=== PATIENT | male | born 1945 | race Caucasian/White ===

== ENCOUNTER → 2017-01-29 | Outpatient (CLI) | payer OTHER ==
[~2017-01-29] MED LIST: /LABE20TA OR; AMLO10TA PO; CALCIUM GLUCONATE; NIAC500T PO; [UNRECOGNIZED DRUG - OTHER] PO
== END ==
LOC: M SLEEP 19:22
PROVIDERS: ATTEND Nurse Practitioner Adult Health
DX: G47.33 Obstructive sleep apnea (adult) (pediatric) (principal)

== ENCOUNTER → 2017-04-22 | Outpatient (REF) | payer OTHER ==
[2017-04-22 15:16] LABS: MEAN CORPUSCULAR VOLUME 91.1 fl (80.0-96.0); RED CELL DISTRIBUTION WIDTH 13.1 % (11.5-14.5); WHITE BLOOD COUNT 5.3 K/mm3 (4.0-10.0)
[2017-04-22 15:17] LABS: ALBUMIN 3.7 GM/DL (3.2-5.2); ALBUMIN/GLOBULIN RATIO 1.28 (1.00-1.93); BILIRUBIN,TOTAL 1.7 MG/DL (0.2-1.0); CALCIUM LEVEL 8.8 MG/DL (8.8-10.2); CREATININE FOR GFR 1.32 MG/DL (0.70-1.30); GLOMERULAR FILTRATION RATE 57.1 (>42); POTASSIUM SERUM 4.3 MEQ/L (3.5-5.1); TOTAL PROTEIN 6.6 GM/DL (6.4-8.2)
[2017-04-25 00:06] LABS: Lyme Disease IgG/IgM Antibodie <0.91 ISR (0.00-0.90); Lyme Disease IgM Ab Quantitati <0.80 index (0.00-0.79)
== END ==
LOC: M SFHCLACO 09:12
PROVIDERS: ATTEND Physician Assistant
DX: J44.9 Chronic obstructive pulmonary disease, unspecified (principal); E78.2 Mixed hyperlipidemia; I12.9 Hypertensive chronic kidney disease with stage 1 through stage 4 chronic kidney disease, or unspecified chronic kidney disease; N18.3 Chronic kidney disease, stage 3 (moderate); W57.XXXS Bitten or stung by nonvenomous insect and other nonvenomous arthropods, sequela; Y92.9 Unspecified place or not applicable; Y93.9 Activity, unspecified; Y99.8 Other external cause status

== ENCOUNTER → 2017-04-27 | Outpatient (REF) | payer OTHER | LOC: M SFHCLACO 08:29 | PROVIDERS: ATTEND Physician Assistant | DX: Z12.5 Encounter for screening for malignant neoplasm of prostate (principal) | CPT/HCPCS: 36415; G0103; G0463 ==

== ENCOUNTER → 2017-10-12 | Outpatient (REF) | payer OTHER ==
[2017-10-12 15:03] LABS: MEAN CORPUSCULAR HEMOGLOBIN 30.6 pg (27.0-33.0); MEAN CORPUSCULAR HGB CONC 34.6 g/dl (32.0-36.5); MEAN CORPUSCULAR VOLUME 88.5 fl (80.0-96.0); PLATELET COUNT, AUTOMATED 198 10^3/uL (150-450); RED CELL DISTRIBUTION WIDTH 13.7 % (11.5-14.5); WHITE BLOOD COUNT 6.2 10^3/uL (4.0-10.0)
[2017-10-12 15:19] LABS: ALBUMIN 3.9 GM/DL (3.2-5.2); ALBUMIN/GLOBULIN RATIO 1.44 (1.00-1.93); BILIRUBIN,TOTAL 1.7 MG/DL (0.2-1.0); CALCIUM LEVEL 8.2 MG/DL (8.8-10.2); CREATININE FOR GFR 1.42 MG/DL (0.70-1.30); GLOMERULAR FILTRATION RATE 52.5 (>42); PERCENT SATURATION 24.9 % (19.7-50.0); POTASSIUM SERUM 4.4 MEQ/L (3.5-5.1); TOTAL PROTEIN 6.6 GM/DL (6.4-8.2)
== END ==
LOC: M SFHCLACO 09:23
PROVIDERS: ATTEND Physician Assistant
DX: E78.2 Mixed hyperlipidemia (principal); I12.9 Hypertensive chronic kidney disease with stage 1 through stage 4 chronic kidney disease, or unspecified chronic kidney disease; N18.3 Chronic kidney disease, stage 3 (moderate); J44.9 Chronic obstructive pulmonary disease, unspecified; R55 Syncope and collapse; R79.89 Other specified abnormal findings of blood chemistry

== ENCOUNTER → 2018-03-29 | Outpatient (REF) | payer OTHER ==
[2018-03-29 15:21] LABS: HEMATOCRIT 46.5 % (42.0-52.0); HEMOGLOBIN 15.7 g/dl (13.5-17.5); MEAN CORPUSCULAR HEMOGLOBIN 29.7 pg (27.0-33.0); MEAN CORPUSCULAR HGB CONC 33.8 g/dl (32.0-36.5); MEAN CORPUSCULAR VOLUME 87.9 fl (80.0-96.0); PLATELET COUNT, AUTOMATED 208 10^3/uL (150-450); RED BLOOD COUNT 5.29 10^6/uL (4.30-6.10); WHITE BLOOD COUNT 5.4 10^3/uL (4.0-10.0)
[2018-03-29 15:51] LABS: ALBUMIN/GLOBULIN RATIO 1.33 (1.00-1.93); ALKALINE PHOSPHATASE 88 U/L (45-117); ALT/SGPT 42 U/L (12-78); ANION GAP 5 MEQ/L (8-16); AST/SGOT 25 U/L (7-37); BILIRUBIN,TOTAL 1.4 MG/DL (0.2-1.0); BLOOD UREA NITROGEN 20 MG/DL (7-18); CALCIUM LEVEL 8.8 MG/DL (8.8-10.2); CARBON DIOXIDE LEVEL 29 MEQ/L (21-32); CHLORIDE LEVEL 106 MEQ/L (98-107); CHOLESTEROL LEVEL 172 MG/DL (<200); CHOLESTEROL RISK RATIO 3.822 (<5); CREATININE FOR GFR 1.26 MG/DL (0.70-1.30); FERRITIN 110 NG/ML (26-388); GLOMERULAR FILTRATION RATE > 60.0 (>42); GLUCOSE, FASTING 93 MG/DL (70-100); HDL CHOLESTEROL 45 MG/DL (>40); IRON (FE) 130 UG/DL (65-175); LDL CHOLESTEROL 81.8 MG/DL (<100); NON-HDL-C 127 MG/DL; PERCENT SATURATION 36.3 % (19.7-50.0); POTASSIUM SERUM 4.2 MEQ/L (3.5-5.1); SODIUM LEVEL 140 MEQ/L (136-145); TOTAL IRON BINDING CAPACITY 358 UG/DL (250-450); TRIGLYCERIDES LEVEL 226 MG/DL (<150)
== END ==
LOC: M SFHCLACO 15:09
DX: J44.9 Chronic obstructive pulmonary disease, unspecified (principal); E78.2 Mixed hyperlipidemia; I10 Essential (primary) hypertension; R55 Syncope and collapse; R79.89 Other specified abnormal findings of blood chemistry
CPT/HCPCS: 83550

== ENCOUNTER 2018-06-07 23:22 | Inpatient (IN) | payer OTHER ==
[2018-06-08] MEDS: KETOROLAC 60 MG/2 ML VIAL (J1885) IM (04:55)
[2018-06-08] MEDS: MORPHINE 4 MG/ML 1ML VIAL/SYRINGE (J2270) IV (07:45)
[2018-06-08 07:55] LABS: BASO # 0.1 10^3/uL (0.0-0.2); BASO % 0.3 % (0.0-1.0); EOS % 0.2 % (0.0-3.0); HEMOGLOBIN 11.5 g/dl (13.5-17.5); IMMATURE GRANULOCYTE % 1.2 % (0-3.0); LYMPH # 2.5 10^3/uL (1.5-4.5); LYMPH % 13.7 % (24.0-44.0); MEAN CORPUSCULAR HEMOGLOBIN 30.1 pg (27.0-33.0); MEAN CORPUSCULAR HGB CONC 34.8 g/dl (32.0-36.5); MEAN CORPUSCULAR VOLUME 86.4 fl (80.0-96.0); MONO # 1.6 10^3/uL (0.0-0.8); MONO % 8.6 % (0.0-5.0); NEUTROPHILS # 14.1 10^3/uL (1.8-7.7); PLATELET COUNT, AUTOMATED 235 10^3/uL (150-450); RED BLOOD COUNT 3.82 10^6/uL (4.30-6.10); RED CELL DISTRIBUTION WIDTH 13.4 % (11.5-14.5); WHITE BLOOD COUNT 18.6 10^3/uL (4.0-10.0)
[2018-06-08 08:19] LABS: ANION GAP 12 MEQ/L (8-16); BLOOD UREA NITROGEN 35 MG/DL (7-18); CALCIUM LEVEL 7.8 MG/DL (8.8-10.2); CARBON DIOXIDE LEVEL 20 MEQ/L (21-32); CHLORIDE LEVEL 111 MEQ/L (98-107); CREATININE FOR GFR 2.16 MG/DL (0.70-1.30); GLOMERULAR FILTRATION RATE 32.2 (>42); GLUCOSE, FASTING 121 MG/DL (70-100); POTASSIUM SERUM 4.8 MEQ/L (3.5-5.1); SODIUM LEVEL 143 MEQ/L (136-145)
[2018-06-08] MEDS: NS 1,000 ML IV ×3 (08:45→21:11)
[2018-06-08 08:49] LABS: CPK CREATINE PHOSPHOKINASE 225 U/L (39-308)
[2018-06-08] MEDS ORDERED: ACETAMINOPHEN TAB 650MG DOSE (2X325MG) PO (12:00)
[2018-06-08] MEDS ORDERED: ALBUTEROL 90 MCG/ACT 8GM HFA INHALER INH (12:00)
[2018-06-08] MEDS ORDERED: ONDANSETRON 4 MG TAB (S0181) PO (12:00)
[2018-06-08] MEDS: CEFDINIR 300 MG CAP (OMNICEF) PO ×2 (17:43→21:11)
[2018-06-08] MEDS: amLODIPine 10 MG TAB PO (17:44)
[2018-06-08] MEDS: PERCOCET 5MG/325MG TAB PO ×2 (17:46→21:53)
[2018-06-08] MEDS: SENOKOT S TAB PO (21:11)
[2018-06-08] MEDS: DOCUSATE SODIUM 100 MG CAP PO (21:11)
[2018-06-09] MEDS: PERCOCET 5MG/325MG TAB PO ×5 (01:52→23:45)
[2018-06-09] MEDS: NS 1,000 ML IV ×4 (04:24→23:45)
[2018-06-09 06:49] LABS: HEMATOCRIT 28.3 % (42.0-52.0); MEAN CORPUSCULAR HEMOGLOBIN 29.9 pg (27.0-33.0); MEAN CORPUSCULAR HGB CONC 33.2 g/dl (32.0-36.5); MEAN CORPUSCULAR VOLUME 90.1 fl (80.0-96.0); PLATELET COUNT, AUTOMATED 186 10^3/uL (150-450); RED BLOOD COUNT 3.14 10^6/uL (4.30-6.10); RED CELL DISTRIBUTION WIDTH 13.6 % (11.5-14.5); WHITE BLOOD COUNT 11.8 10^3/uL (4.0-10.0)
[2018-06-09 06:55] LABS: HEMOGLOBIN 9.4 g/dl (13.5-17.5)
[2018-06-09 07:13] LABS: ALBUMIN 2.5 GM/DL (3.2-5.2); ALBUMIN/GLOBULIN RATIO 0.89 (1.00-1.93); ALKALINE PHOSPHATASE 76 U/L (45-117); ALT/SGPT 35 U/L (12-78); ANION GAP 7 MEQ/L (8-16); AST/SGOT 21 U/L (7-37); BLOOD UREA NITROGEN 45 MG/DL (7-18); CARBON DIOXIDE LEVEL 25 MEQ/L (21-32); CHLORIDE LEVEL 110 MEQ/L (98-107); CREATININE FOR GFR 2.37 MG/DL (0.70-1.30); GLUCOSE, FASTING 106 MG/DL (70-100); MAGNESIUM LEVEL 1.9 MG/DL (1.8-2.4); PHOSPHORUS LEVEL 4.2 MG/DL (2.5-4.9); SODIUM LEVEL 142 MEQ/L (136-145); TOTAL PROTEIN 5.3 GM/DL (6.4-8.2)
[2018-06-09] MEDS: TOLTERODINE TARTRATE 2 MG LA CAP (DETROL LA) PO (08:39)
[2018-06-09] MEDS: amLODIPine 10 MG TAB PO (08:39)
[2018-06-09] MEDS: SENOKOT S TAB PO ×2 (08:39→19:26)
[2018-06-09] MEDS: CEFDINIR 300 MG CAP (OMNICEF) PO ×2 (08:39→19:25)
[2018-06-09] MEDS: DOCUSATE SODIUM 100 MG CAP PO ×2 (08:39→19:25)
[2018-06-09] MEDS: TIOTROPIUM INHALER/CAPSULE (SPIRIVA) INH ×2 (11:00→11:21)
[2018-06-09 15:50] LABS: CREATININE,RANDOM URINE 47.9 MG/DL
[2018-06-09 15:50] LABS: SODIUM,RANDOM URINE 37 MEQ/L
[2018-06-10] MEDS: PERCOCET 5MG/325MG TAB PO ×4 (04:19→22:31)
[2018-06-10] MEDS: NS 1,000 ML IV (06:27)
[2018-06-10 06:46] LABS: HEMATOCRIT 25.2 % (42.0-52.0); HEMOGLOBIN 8.5 g/dl (13.5-17.5); MEAN CORPUSCULAR HGB CONC 33.7 g/dl (32.0-36.5); PLATELET COUNT, AUTOMATED 152 10^3/uL (150-450); RED BLOOD COUNT 2.83 10^6/uL (4.30-6.10); RED CELL DISTRIBUTION WIDTH 13.6 % (11.5-14.5); WHITE BLOOD COUNT 8.7 10^3/uL (4.0-10.0)
[2018-06-10] MEDS: TIOTROPIUM INHALER/CAPSULE (SPIRIVA) INH (07:40)
[2018-06-10 07:52] LABS: ANION GAP 6 MEQ/L (8-16); BLOOD UREA NITROGEN 29 MG/DL (7-18); CALCIUM LEVEL 7.2 MG/DL (8.8-10.2); CARBON DIOXIDE LEVEL 25 MEQ/L (21-32); CHLORIDE LEVEL 116 MEQ/L (98-107); CREATININE FOR GFR 1.62 MG/DL (0.70-1.30); GLOMERULAR FILTRATION RATE 44.9 (>42); GLUCOSE, FASTING 99 MG/DL (70-100); SODIUM LEVEL 147 MEQ/L (136-145)
[2018-06-10 08:06] LABS: POTASSIUM SERUM 4.9 MEQ/L (3.5-5.1)
[2018-06-10] MEDS: amLODIPine 10 MG TAB PO (08:44)
[2018-06-10] MEDS: CEFDINIR 300 MG CAP (OMNICEF) PO ×2 (08:44→20:12)
[2018-06-10] MEDS: DOCUSATE SODIUM 100 MG CAP PO ×2 (08:44→20:12)
[2018-06-10] MEDS: SENOKOT S TAB PO ×2 (08:44→20:12)
[2018-06-10] MEDS: TOLTERODINE TARTRATE 2 MG LA CAP (DETROL LA) PO (08:44)
[2018-06-10 10:43] LABS: HEMATOCRIT 27.7 % (42.0-52.0); HEMOGLOBIN 9.4 g/dl (13.5-17.5)
[2018-06-11] MEDS: PERCOCET 5MG/325MG TAB PO ×2 (02:48→10:50)
[2018-06-11 06:37] LABS: HEMATOCRIT 26.4 % (42.0-52.0); MEAN CORPUSCULAR HEMOGLOBIN 30.1 pg (27.0-33.0); MEAN CORPUSCULAR HGB CONC 34.1 g/dl (32.0-36.5); MEAN CORPUSCULAR VOLUME 88.3 fl (80.0-96.0); PLATELET COUNT, AUTOMATED 173 10^3/uL (150-450); RED BLOOD COUNT 2.99 10^6/uL (4.30-6.10); RED CELL DISTRIBUTION WIDTH 13.9 % (11.5-14.5)
[2018-06-11 06:55] LABS: ANION GAP 7 MEQ/L (8-16); BLOOD UREA NITROGEN 18 MG/DL (7-18); CALCIUM LEVEL 7.8 MG/DL (8.8-10.2); CARBON DIOXIDE LEVEL 26 MEQ/L (21-32); CHLORIDE LEVEL 111 MEQ/L (98-107); CREATININE FOR GFR 1.32 MG/DL (0.70-1.30); GLOMERULAR FILTRATION RATE 56.9 (>42); GLUCOSE, FASTING 103 MG/DL (70-100); POTASSIUM SERUM 4.1 MEQ/L (3.5-5.1); SODIUM LEVEL 144 MEQ/L (136-145)
[2018-06-11] MEDS: TIOTROPIUM INHALER/CAPSULE (SPIRIVA) INH (08:55)
[2018-06-11] MEDS: TOLTERODINE TARTRATE 2 MG LA CAP (DETROL LA) PO (09:18)
[2018-06-11] MEDS: amLODIPine 10 MG TAB PO (09:19)
[2018-06-11] MEDS: SENOKOT S TAB PO (09:20)
[2018-06-11] MEDS: CEFDINIR 300 MG CAP (OMNICEF) PO (09:20)
[2018-06-11] MEDS: DOCUSATE SODIUM 100 MG CAP PO (09:20)
== END 2018-06-11 16:35 | disposition home or self-care (01) | DRG 537 ==
LOC: M ED 23:22 → M ED INP 06-08 09:31 → M MS5PR 06-08 16:55
DX: S76.312A Strain of muscle, fascia and tendon of the posterior muscle group at thigh level, left thigh, initial encounter (principal); N17.9 Acute kidney failure, unspecified; I12.9 Hypertensive chronic kidney disease with stage 1 through stage 4 chronic kidney disease, or unspecified chronic kidney disease; N18.9 Chronic kidney disease, unspecified; E86.0 Dehydration; D64.9 Anemia, unspecified; J44.9 Chronic obstructive pulmonary disease, unspecified; W18.09XA Striking against other object with subsequent fall, initial encounter; Y93.01 Activity, walking, marching and hiking; Y92.828 Other wilderness area as the place of occurrence of the external cause

== ENCOUNTER → 2018-07-21 | Outpatient (REF) | payer OTHER ==
[2018-07-21 14:41] LABS: HEMATOCRIT 48.4 % (42.0-52.0); HEMOGLOBIN 16.4 g/dl (13.5-17.5); MEAN CORPUSCULAR HEMOGLOBIN 30.2 pg (27.0-33.0); MEAN CORPUSCULAR HGB CONC 33.9 g/dl (32.0-36.5); MEAN CORPUSCULAR VOLUME 89.1 fl (80.0-96.0); PLATELET COUNT, AUTOMATED 253 10^3/uL (150-450); RED BLOOD COUNT 5.43 10^6/uL (4.30-6.10); RED CELL DISTRIBUTION WIDTH 13.2 % (11.5-14.5); WHITE BLOOD COUNT 8.3 10^3/uL (4.0-10.0)
[2018-07-21 14:57] LABS: ALBUMIN 4.1 GM/DL (3.2-5.2); ALBUMIN/GLOBULIN RATIO 1.21 (1.00-1.93); ALKALINE PHOSPHATASE 100 U/L (45-117); ALT/SGPT 38 U/L (12-78); ANION GAP 10 MEQ/L (8-16); AST/SGOT 21 U/L (7-37); BILIRUBIN,TOTAL 1.1 MG/DL (0.2-1.0); BLOOD UREA NITROGEN 15 MG/DL (7-18); CARBON DIOXIDE LEVEL 24 MEQ/L (21-32); CHLORIDE LEVEL 107 MEQ/L (98-107); CHOLESTEROL LEVEL 171 MG/DL (<200); CHOLESTEROL RISK RATIO 3.638 (<5); FERRITIN 169 NG/ML (26-388); GLOMERULAR FILTRATION RATE 53.2 (>42); GLUCOSE, FASTING 88 MG/DL (70-100); HDL CHOLESTEROL 47 MG/DL (>40); IRON (FE) 86 UG/DL (65-175); LDL CHOLESTEROL 85.2 MG/DL (<100); NON-HDL-C 124 MG/DL; PERCENT SATURATION 24.2 % (19.7-50.0); POTASSIUM SERUM 4.2 MEQ/L (3.5-5.1); PSA SCREENING 1.36 NG/ML (< 4.0); SODIUM LEVEL 141 MEQ/L (136-145); TOTAL IRON BINDING CAPACITY 356 UG/DL (250-450); TOTAL PROTEIN 7.5 GM/DL (6.4-8.2); TRIGLYCERIDES LEVEL 194 MG/DL (<150)
== END ==
LOC: M SFHCLACO 11:23
DX: D50.0 Iron deficiency anemia secondary to blood loss (chronic) (principal); E78.2 Mixed hyperlipidemia; I10 Essential (primary) hypertension; Z12.5 Encounter for screening for malignant neoplasm of prostate
CPT/HCPCS: 83550

== ENCOUNTER → 2019-10-24 | Outpatient (CLI) | payer MEDICARE ==
[~2019-10-24] MED LIST changes: -/LABE20TA OR; +CEFD300CAP PO; +INCR1INH INH; +LABE1TAB11 OR; +LOSA100T50 PO; +TOLT4CAP3 PO; +TRAM50TA2 PO; +VENTAER INH
--- NOTE | 2019-10-25 10:49 | REP ---
MRI RIGHT SHOULDER: TECHNIQUE: Axial T2 fat sat, gradient echo, sagittal oblique T2 fat sat, coronal oblique T1, T2 fat sat. Ill-defined increased signal is seen in the subscapularis, supraspinatus and infraspinatus tendons on T2-weighted images compatible with moderate tendinopathy/tendinitis. I cannot exclude mild partial thickness tears. There are moderate hypertrophic degenerative changes of the acromioclavicular joint with a type 1 acromion. Biceps tendon is within the bicipital groove. It demonstrates mild surrounding fluid and the proximal aspect is thickened with mild increased signal. Findings are compatible with mild to moderate tenosynovitis. There is no abnormal signal in the deltoid muscle. There is fraying of the biceps labral complex and also diffusely of the superior and inferior labrum. There is a focal tear of the posterior labrum. Huge spur is seen of the medial inferior humeral head and neck. There is flattening of the humeral head at the glenohumeral joint. There is severe chondromalacia at the glenohumeral joint with mild subchondral marrow edema and there is mild scattered subchondral cystic change in the humeral head. There is a moderate joint effusion. Multiple, innumerable joint bodies are present diffusely. Most are subcentimeter in size but a few large joint bodies more superiorly reach approximately 2 cm in diameter. A few large joint bodies in the subcoracoid region have a maximum diameter about 2.7 cm. IMPRESSION: Moderate tendinopathy/tendinitis of the subscapularis, supraspinatus and infraspinatus tendons. Partial thickness tears of these tendons could not be excluded. 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 Moderate biceps tenosynovitis. There is fraying of the biceps labral complex and also diffuse fraying of the superior and inferior labrum. There is a discrete tear seen of the posterior labrum. Severe chondromalacia of the glenohumeral joint with mild subchondral marrow edema. Mild subchondral cystic change humeral head with flattening at the glenohumeral joint. Huge spur of the medial inferior humeral head and neck. Multiple joint bodies as discussed in detail above with moderate joint effusion. Electronically Signed by Marc Landeros MD 10/25/2019 11:36 A
== END ==
LOC: M RAD 17:30
PROVIDERS: ATTEND Orthopaedic Surgery
DX: M19.011 Primary osteoarthritis, right shoulder (principal); M25.711 Osteophyte, right shoulder; M25.411 Effusion, right shoulder; M75.30 Calcific tendinitis of unspecified shoulder; M94.211 Chondromalacia, right shoulder; M25.511 Pain in right shoulder

== ENCOUNTER → 2019-12-08 | Outpatient (REF) | payer MEDICARE ==
[2019-12-08 13:46] LABS: BASO # 0.1 10^3/uL (0.0-0.2); BASO % 0.6 % (0.0-1.0); EOS # 0.1 10^3/uL (0.0-0.5); EOS % 1.1 % (0.0-3.0); HEMATOCRIT 47.7 % (42.0-52.0); HEMOGLOBIN 16.1 g/dl (13.5-17.5); MEAN CORPUSCULAR HEMOGLOBIN 30.1 pg (27.0-33.0); MEAN CORPUSCULAR HGB CONC 33.8 g/dl (32.0-36.5); MEAN CORPUSCULAR VOLUME 89.3 fl (80.0-96.0); MONO # 0.9 10^3/uL (0.0-0.8); MONO % 10.1 % (0.0-5.0); NEUTROPHILS # 5.9 10^3/uL (1.5-8.5); NEUTROPHILS % 65.9 % (36.0-66.0); PLATELET COUNT, AUTOMATED 262 10^3/uL (150-450); RED BLOOD COUNT 5.34 10^6/uL (4.30-6.10); WHITE BLOOD COUNT 8.9 10^3/uL (4.0-10.0)
[2019-12-08 14:33] LABS: INR 1.06; PROTHROMBIN TIME 13.5 SECONDS (11.8-14.0)
[2019-12-08 14:55] LABS: ALBUMIN 4.2 GM/DL (3.2-5.2); BILIRUBIN,TOTAL 1.4 MG/DL (0.2-1.0); CALCIUM LEVEL 8.6 MG/DL (8.8-10.2); CHOLESTEROL RISK RATIO 4.302 (<5); CREATININE FOR GFR 1.7 MG/DL (0.70-1.30); FREE T4 0.8 NG/DL (0.76-1.46); GLOMERULAR FILTRATION RATE 42.3 (>42); MAGNESIUM LEVEL 2.2 MG/DL (1.8-2.4); POTASSIUM SERUM 4.3 MEQ/L (3.5-5.1); THYROID STIMULATING HORMONE 5.13 uIU/ML (0.358-3.740); TOTAL PROTEIN 7.1 GM/DL (6.4-8.2)
== END ==
LOC: M SFHCPLAZ 11:32
PROVIDERS: ATTEND Family Medicine
DX: Z01.818 Encounter for other preprocedural examination (principal); I10 Essential (primary) hypertension; Z79.899 Other long term (current) drug therapy

== ENCOUNTER → 2020-02-06 | Outpatient (REF) | payer MEDICARE ==
[2020-02-06 13:24] LABS: HEMOGLOBIN A1c 5.5 %
[2020-02-06 13:26] LABS: ALBUMIN 3.9 GM/DL (3.2-5.2); BILIRUBIN,TOTAL 1.1 MG/DL (0.2-1.0); CALCIUM LEVEL 8.8 MG/DL (8.8-10.2); CHOLESTEROL RISK RATIO 4.34 (<5); CREATININE FOR GFR 1.37 MG/DL (0.70-1.30); GLOMERULAR FILTRATION RATE 54.2 (>42); POTASSIUM SERUM 4.1 MEQ/L (3.5-5.1); THYROID STIMULATING HORMONE 2.28 uIU/ML (0.358-3.740); TOTAL PROTEIN 7.4 GM/DL (6.4-8.2)
== END ==
LOC: M SFHCADAM 09:41
PROVIDERS: ATTEND Physician Assistant
DX: Z12.5 Encounter for screening for malignant neoplasm of prostate (principal); I10 Essential (primary) hypertension; R73.01 Impaired fasting glucose; E03.9 Hypothyroidism, unspecified
CPT/HCPCS: 80053; 80061; 83036; 84443; G0103

== ENCOUNTER → 2020-07-17 | Outpatient (CLI) | payer MEDICARE ==
--- NOTE | 2020-07-25 15:02 | REP ---
CHEST X-RAY CLINICAL: Shortness of breath. TECHNIQUE: PA and lateral. COMPARISON: None. FINDINGS: Mediastinum and cardiac silhouette are within normal limits. Lung marie are clear. No consolidation, effusion, or pneumothorax. Skeletal structures demonstrate age-related degenerative changes and evidence for prior right shoulder repair. IMPRESSION: Chronic appearing changes. No acute cardiopulmonary process appreciated. MTDD
== END ==
LOC: M ADAMS 14:26
PROVIDERS: ATTEND Nurse Practitioner Adult Health
DX: R06.02 Shortness of breath (principal); M15.9 Polyosteoarthritis, unspecified

== ENCOUNTER → 2020-08-05 | Outpatient (REF) | payer MEDICARE ==
[2020-08-05 12:46] LABS: BASO % 0.6 % (0.0-1.0); EOS # 0.1 10^3/uL (0.0-0.5); EOS % 1.4 % (0.0-3.0); HEMOGLOBIN 17.2 g/dl (13.5-17.5); LYMPH # 2.1 10^3/uL (1.5-5.0); LYMPH % 32.6 % (24.0-44.0); MEAN CORPUSCULAR HEMOGLOBIN 29.6 pg (27.0-33.0); MEAN CORPUSCULAR HGB CONC 33.1 g/dl (32.0-36.5); MEAN CORPUSCULAR VOLUME 89.5 fl (80.0-96.0); MONO # 0.5 10^3/uL (0.0-0.8); MONO % 8.1 % (0.0-5.0); NEUTROPHILS # 3.6 10^3/uL (1.5-8.5); NEUTROPHILS % 57.1 % (36.0-66.0); PLATELET COUNT, AUTOMATED 267 10^3/uL (150-450); RED BLOOD COUNT 5.81 10^6/uL (4.30-6.10); WHITE BLOOD COUNT 6.3 10^3/uL (4.0-10.0)
[2020-08-05 12:52] LABS: ALBUMIN 3.6 GM/DL (3.2-5.2); BILIRUBIN,TOTAL 1.2 MG/DL (0.2-1.0); CALCIUM LEVEL 8.9 MG/DL (8.8-10.2); CREATININE FOR GFR 1.6 MG/DL (0.70-1.30); GLOMERULAR FILTRATION RATE 45.3 (>42); POTASSIUM SERUM 4.3 MEQ/L (3.5-5.1); TOTAL PROTEIN 6.5 GM/DL (6.4-8.2)
== END ==
LOC: M SFHCPLAZ 12:16 → M SFHCADAM 12:16
PROVIDERS: ATTEND Family Medicine
DX: R06.02 Shortness of breath (principal)

== ENCOUNTER → 2020-09-30 | Outpatient (REF) | payer MEDICARE ==
[2020-09-30 15:01] LABS: ALBUMIN 3.8 GM/DL (3.2-5.2); BILIRUBIN,TOTAL 1.5 MG/DL (0.2-1.0); CALCIUM LEVEL 9.2 MG/DL (8.8-10.2); CHOLESTEROL RISK RATIO 3.613 (<5); CREATININE FOR GFR 1.5 MG/DL (0.70-1.30); GLOMERULAR FILTRATION RATE 48.8 (>42); POTASSIUM SERUM 4.1 MEQ/L (3.5-5.1); TOTAL PROTEIN 6.8 GM/DL (6.4-8.2)
[2020-09-30 15:45] LABS: HEMOGLOBIN A1c 5.6 %
== END ==
LOC: M SFHCADAM 08:24
PROVIDERS: ATTEND Physician Assistant
DX: I10 Essential (primary) hypertension (principal); R73.01 Impaired fasting glucose

== ENCOUNTER → 2020-10-07 | Outpatient (REF) | payer MEDICARE | LOC: M SFHCADAM 11:44 | PROVIDERS: ATTEND Physician Assistant | DX: E03.9 Hypothyroidism, unspecified (principal) | CPT/HCPCS: 84443; G0463 ==

== ENCOUNTER → 2021-02-24 | Outpatient (CLI) | payer MEDICARE ==
--- NOTE | 2021-02-24 10:58 | REP ---
INDICATION: PAIN IN LEFT SHOULDER ELBOW COMPARISON: None. TECHNIQUE: AP, lateral, bilateral oblique views of the left elbow elbow. FINDINGS: No acute fracture or dislocation is appreciated. Joint spaces and surrounding soft tissues appear normal. Lateral view demonstrates normal positioning to the anterior and posterior fat pads without evidence for effusion/hemarthrosis. No subcutaneous emphysema or foreign body identified. IMPRESSION: No evidence for acute fracture at the elbow. <Electronically signed by Ananth Miranda > 02/24/21 [id number]
--- NOTE | 2021-02-24 10:59 | REP ---
INDICATION: PAIN IN LEFT SHOULDER ELBOW COMPARISON: None. TECHNIQUE: AP, lateral, bilateral oblique views left wrist. FINDINGS: The carpal bones, surrounding osseous structures, soft tissues, and joint spaces are relatively age-appropriate. There is no evidence for acute fracture or dislocation. No subcutaneous emphysema or radiodense foreign body. IMPRESSION: Age-related degenerative changes noted. No obvious acute fracture or dislocation. <Electronically signed by Ananth Miranda > 02/24/21 [id number]
--- NOTE | 2021-02-24 11:01 | REP ---
INDICATION: PAIN IN LEFT SHOULDER ELBOW COMPARISON: None. TECHNIQUE: Internal rotation, external rotation, and Y view. FINDINGS: Moderate degenerative changes are appreciated at the acromioclavicular and glenohumeral joint. Subacromial space is normal. No evidence for acute fracture or dislocation. IMPRESSION: Moderate age-related degenerative changes to the shoulder. No obvious acute fracture or dislocation. <Electronically signed by Ananth Miranda > 02/24/21 [id number]
== END ==
LOC: M ADAMS 08:58
PROVIDERS: ATTEND Nurse Practitioner Family
DX: M25.512 Pain in left shoulder (principal)

== ENCOUNTER → 2021-04-01 | Outpatient (REF) | payer MEDICARE ==
[2021-04-01 13:40] LABS: ALBUMIN 3.9 GM/DL (3.2-5.2); BILIRUBIN,TOTAL 1.7 MG/DL (0.2-1.0); CHOLESTEROL RISK RATIO 4.048 (<5); CREATININE FOR GFR 1.36 MG/DL (0.70-1.30); GLOMERULAR FILTRATION RATE 54.5 (>42); POTASSIUM SERUM 4.3 MEQ/L (3.5-5.1); THYROID STIMULATING HORMONE 3.31 uIU/ML (0.358-3.740); TOTAL PROTEIN 6.8 GM/DL (6.4-8.2)
[2021-04-01 13:47] LABS: HEMOGLOBIN A1c 5.4 %
== END ==
LOC: M SFHCADAM 07:59
PROVIDERS: ATTEND Physician Assistant
DX: Z12.5 Encounter for screening for malignant neoplasm of prostate (principal); R73.01 Impaired fasting glucose; I10 Essential (primary) hypertension; E03.9 Hypothyroidism, unspecified
CPT/HCPCS: 80053; 80061; 83036; 84443; G0103

== ENCOUNTER → 2021-07-13 | Outpatient (CLI) | payer MEDICARE ==
--- NOTE | 2021-07-20 19:02 | SLEEPCENT ---
DATE: 07/13/2021 CPAP RE-TITRATION ORDERED BY: Gina Mahajan NP Nocturnal polysomnography was performed for the re-titration of pressure therapy in this patient with obstructive sleep apnea syndrome. For testing the patient was fit with a ResMed F301 full face mask of medium size, 4 cm of water pressure were applied to the circuit, and the lights were extinguished. Seven hours of data were reviewed. There were 283 minutes of sleep identified. Sleep latency was short at 8 minutes. REM latency was short at 72 minutes. Sleep architecture was good with two REM cycles Overall sleep efficiency was 69.7%. The electrocardiogram showed a sinus rhythm with small complexes. Average heart rate of 80 beats per minute. EEG showed normal waveforms for wake and sleep. Respiratory events were best palliated with CPAP at a pressure of 13. Significant limb activity was noted in the EMG leads and limb movement arousal index on this occasion was 4.2. IMPRESSION: Obstructive sleep apnea syndrome (G47.33). RECOMMENDATION: Nightly use of pressure therapy 13 cm of water. cc: RICARDO ALVA PA-C
== END ==
LOC: M SLEEP 20:10
PROVIDERS: ATTEND Nurse Practitioner Adult Health
DX: G47.33 Obstructive sleep apnea (adult) (pediatric) (principal)

== ENCOUNTER → 2021-09-30 | Outpatient (REF) | payer MEDICARE ==
[2021-09-30 13:26] LABS: CREATININE FOR GFR 1.35 MG/DL (0.70-1.30); POTASSIUM SERUM 4.1 MEQ/L (3.5-5.1)
[2021-09-30 13:27] LABS: ALBUMIN 4.1 GM/DL (3.2-5.2); BILIRUBIN,TOTAL 2.4 MG/DL (0.2-1.0); CALCIUM LEVEL 9.4 MG/DL (8.8-10.2); CHOLESTEROL RISK RATIO 4.227 (<5); THYROID STIMULATING HORMONE 3.15 uIU/ML (0.358-3.740); TOTAL PROTEIN 7.5 GM/DL (6.4-8.2)
[2021-09-30 15:20] LABS: HEMOGLOBIN A1c 5.3 %
== END ==
LOC: M SFHCADAM 08:13
PROVIDERS: ATTEND Internal Medicine Infectious Disease
DX: I10 Essential (primary) hypertension (principal); R73.01 Impaired fasting glucose; E03.9 Hypothyroidism, unspecified

== ENCOUNTER → 2022-04-06 | Outpatient (REF) | payer MEDICARE ==
[~2022-04-06] MED LIST changes: +LOSA100T45 PO; -LOSA100T50 PO
[2022-04-06 13:51] LABS: HEMATOCRIT 49.6 % (42.0-52.0); HEMOGLOBIN 16.9 g/dl (13.5-17.5); MEAN CORPUSCULAR HEMOGLOBIN 30.3 pg (27.0-33.0); MEAN CORPUSCULAR HGB CONC 34.1 g/dl (32.0-36.5); PLATELET COUNT, AUTOMATED 199 10^3/uL (150-450); RED BLOOD COUNT 5.57 10^6/uL (4.30-6.10)
[2022-04-06 14:37] LABS: BILIRUBIN,TOTAL 2.2 MG/DL (0.2-1.0); CALCIUM LEVEL 9.1 MG/DL (8.8-10.2); CHOLESTEROL RISK RATIO 3.674 (<5); CREATININE FOR GFR 1.53 MG/DL (0.70-1.30); GLOMERULAR FILTRATION RATE 47.5 (>42); POTASSIUM SERUM 4.1 MEQ/L (3.5-5.1); THYROID STIMULATING HORMONE 1.84 uIU/ML (0.358-3.740); TOTAL PROTEIN 6.6 GM/DL (6.4-8.2)
[2022-04-06 15:48] LABS: HEMOGLOBIN A1c 5.5 %
== END ==
LOC: M SFHCADAM 09:09
PROVIDERS: ATTEND Physician Assistant
DX: D50.0 Iron deficiency anemia secondary to blood loss (chronic) (principal); I10 Essential (primary) hypertension; E78.2 Mixed hyperlipidemia; E88.81 Metabolic syndrome and other insulin resistance; E03.9 Hypothyroidism, unspecified; Z79.899 Other long term (current) drug therapy

== ENCOUNTER → 2022-10-12 | Outpatient (REF) | payer MEDICARE ==
[2022-10-12 14:30] LABS: ALBUMIN 4.2 G/DL (3.2-5.2); BILIRUBIN,TOTAL 2.1 MG/DL (0.3-1.2); CALCIUM LEVEL 8.7 MG/DL (8.3-10.6); CREATININE FOR GFR 1.25 MG/DL (0.70-1.30); GLOMERULAR FILTRATION RATE 59.9 (>42); POTASSIUM SERUM 5.1 MMOL/L (3.5-5.1); TOTAL PROTEIN 6.8 G/DL (5.7-8.2)
== END ==
LOC: M SFHCADAM 07:57
PROVIDERS: ATTEND Family Medicine
DX: I10 Essential (primary) hypertension (principal)

== ENCOUNTER → 2022-12-14 | Outpatient (CLI) | payer MEDICARE ==
[~2022-12-14] MED LIST changes: +ACET325C5 PO; +ALBU8.5H; +AMIO200T49 PO; +AMLO1TAB25 PO; +BREO1INH3 INH; +OXYB5TAB10 PO; +SERT50TA29 PO; +XARE20TA PO
== END ==
LOC: M LABSMTC 10:16
PROVIDERS: ATTEND Anesthesiology
DX: Z01.812 Encounter for preprocedural laboratory examination (principal); Z20.822 Contact with and (suspected) exposure to COVID-19

== ENCOUNTER 2022-12-17 06:05 | Day surgery (SDC) | payer MEDICARE ==
[~2022-12-17] VITALS: Ht 185.4 cm; Wt 102.1 kg
[2022-12-17] MEDS ORDERED: LR 1,000 ML IV SCH (06:35)
[2022-12-17] MEDS ORDERED: propofoL 200 MG/20 ML VIAL As Ordered ONE (07:11)
[2022-12-17] MEDS ORDERED: ONDANSETRON 4MG 2ML VIAL IV PRN (07:45)
[2022-12-17 08:07] VITALS: BP 128/74
== END 2022-12-17 08:30 | disposition home or self-care (01) ==
LOC: M SDC 06:05
PROVIDERS: ATTEND Internal Medicine Cardiovascular Disease
DX: I48.91 Unspecified atrial fibrillation (principal); J44.9 Chronic obstructive pulmonary disease, unspecified; I11.9 Hypertensive heart disease without heart failure; J45.909 Unspecified asthma, uncomplicated; G47.30 Sleep apnea, unspecified; Z88.0 Allergy status to penicillin; Z79.899 Other long term (current) drug therapy; Z79.01 Long term (current) use of anticoagulants; Z79.51 Long term (current) use of inhaled steroids

== ENCOUNTER → 2023-11-26 | Outpatient (REF) | payer MEDICARE ==
[~2023-11-26] MED LIST changes: -LOSA100T45 PO; +LOSA100T46 PO; -OXYB5TAB10 PO; +OXYB5TAB11 PO
[2023-11-26 14:44] LABS: HEMATOCRIT 43.8 % (42.0-52.0); HEMOGLOBIN 13.5 g/dl (13.5-17.5); MEAN CORPUSCULAR HEMOGLOBIN 27.1 pg (27.0-33.0); MEAN CORPUSCULAR HGB CONC 30.8 g/dl (32.0-36.5); MEAN CORPUSCULAR VOLUME 87.8 fl (80.0-96.0); PLATELET COUNT, AUTOMATED 401 10^3/uL (150-450); RED BLOOD COUNT 4.99 10^6/uL (4.30-6.10); WHITE BLOOD COUNT 8.3 10^3/uL (4.0-10.0)
[2023-11-26 15:04] LABS: ALBUMIN 3.8 G/DL (3.2-5.2); BILIRUBIN,TOTAL 1.1 MG/DL (0.3-1.2); CALCIUM LEVEL 9.2 MG/DL (8.3-10.6); CHOLESTEROL RISK RATIO 3.76 (<5); CREATININE FOR GFR 1.36 MG/DL (0.70-1.30); GLOMERULAR FILTRATION RATE 54.1 (>42); HDL CHOLESTEROL 45.9 MG/DL (>40); LDL CHOLESTEROL 89.7 MG/DL (<100); NON-HDL-C 127.1 MG/DL; POTASSIUM SERUM 4.5 MMOL/L (3.5-5.1); TOTAL PROTEIN 6.9 G/DL (5.7-8.2)
[2023-11-26 15:06] LABS: THYROID STIMULATING HORMONE 9.093 uIU/ML (0.55-4.78)
== END ==
LOC: M LABDRWAD 12:53
PROVIDERS: ATTEND Physician Assistant
DX: I48.19 Other persistent atrial fibrillation (principal); Z13.220 Encounter for screening for lipoid disorders; Z79.899 Other long term (current) drug therapy

== ENCOUNTER → 2024-01-05 | Outpatient (REF) | payer MEDICARE ==
[~2024-01-05] MED LIST changes: -OXYB5TAB11 PO; +OXYB5TAB14 PO
== END ==
LOC: M SFHCADAM 15:44
PROVIDERS: ATTEND Family Medicine
DX: R25.1 Tremor, unspecified (principal)

== ENCOUNTER → 2024-01-10 | Outpatient (REF) | payer MEDICARE ==
[2024-01-10 18:23] LABS: THYROID STIMULATING HORMONE 6.309 uIU/ML (0.55-4.78)
[2024-01-10 18:24] LABS: FREE T4 0.7 NG/DL (0.89-1.76)
== END ==
LOC: M SFHCADAM 15:14
PROVIDERS: ATTEND Family Medicine
DX: R25.1 Tremor, unspecified (principal)

== ENCOUNTER → 2024-02-16 | Outpatient (REF) | payer MEDICARE ==
[2024-02-16 18:49] LABS: FOLATE 14.5 NG/ML (>5.4); THYROID STIMULATING HORMONE 5.472 uIU/ML (0.55-4.78)
== END ==
LOC: M LABDRWAD 16:55 → M LABDRAWC 16:55
PROVIDERS: ATTEND Psychiatry & Neurology Neurology
DX: E03.9 Hypothyroidism, unspecified (principal); E53.8 Deficiency of other specified B group vitamins; E51.9 Thiamine deficiency, unspecified; E53.1 Pyridoxine deficiency; E56.0 Deficiency of vitamin E; R25.1 Tremor, unspecified; R41.3 Other amnesia

== ENCOUNTER → 2024-02-16 | Outpatient (REF) | payer MEDICARE ==
[2024-02-16 18:48] LABS: THYROID STIMULATING HORMONE 5.427 uIU/ML (0.55-4.78)
[2024-02-16 18:49] LABS: FREE T4 0.65 NG/DL (0.89-1.76)
== END ==
LOC: M SFHCADAM 14:39
PROVIDERS: ATTEND Family Medicine
DX: E03.9 Hypothyroidism, unspecified (principal)

== ENCOUNTER → 2024-02-23 | Outpatient (CLI) | payer MEDICARE | LOC: M PLAIMG 12:25 | PROVIDERS: ATTEND Nurse Practitioner Adult Health | DX: R06.02 Shortness of breath (principal) ==

== ENCOUNTER → 2024-03-03 | Outpatient (CLI) | payer MEDICARE | LOC: M RAD 12:13 | PROVIDERS: ATTEND Family Medicine | DX: E03.9 Hypothyroidism, unspecified (principal) ==

== ENCOUNTER → 2024-03-10 | Outpatient (CLI) | payer MEDICARE | LOC: M RADPRO 12:08 | PROVIDERS: ATTEND Nurse Practitioner Adult Health | DX: J98.6 Disorders of diaphragm (principal); R06.02 Shortness of breath ==

== ENCOUNTER → 2024-03-31 | Outpatient (REF) | payer MEDICARE ==
[2024-03-31 14:17] LABS: THYROID STIMULATING HORMONE 4.09 uIU/ML (0.55-4.78)
[2024-03-31 14:19] LABS: FREE T4 0.99 NG/DL (0.89-1.76)
== END ==
LOC: M SFHCADAM 09:51
PROVIDERS: ATTEND Family Medicine
DX: E03.9 Hypothyroidism, unspecified (principal)

== ENCOUNTER → 2024-05-31 | Outpatient (CLI) | payer MEDICARE | LOC: M RAD 14:44 | PROVIDERS: ATTEND Family Medicine | DX: H93.12 Tinnitus, left ear (principal); R09.89 Other specified symptoms and signs involving the circulatory and respiratory systems ==

== ENCOUNTER → 2024-06-28 | Outpatient (CLI) | payer MEDICARE ==
[~2024-06-28] MED LIST changes: +AMLO1TAB24 PO; +B-12100010 PO; +BUPR75TA5 PO; +CARB25TA9 PO; +CITA40TA7 PO; +HYDR50TA46 PO; +LEVA45AE INH; +LEVO50TA5 PO; +LIDO5TD TD; +VITA-148 PO; +VITA100T14 PO
== END ==
LOC: M ADAMS 14:33
PROVIDERS: ATTEND Family Medicine
DX: S99.912A Unspecified injury of left ankle, initial encounter (principal); X58.XXXA Exposure to other specified factors, initial encounter; Y92.9 Unspecified place or not applicable; Y93.9 Activity, unspecified; Y99.9 Unspecified external cause status

== ENCOUNTER 2024-07-21 16:23 | Inpatient (IN) | payer MEDICARE ==
[~2024-07-21] VITALS: Ht 185.4 cm; Wt 106.6 kg
[~2024-07-21 16:23] MED LIST changes: -AMLO1TAB24 PO; -B-12100010 PO; -BUPR75TA5 PO; -CARB25TA9 PO; -CITA40TA7 PO; -HYDR50TA46 PO; -LEVA45AE INH; -LEVO50TA5 PO; -LIDO5TD TD; -VITA-148 PO; -VITA100T14 PO
[2024-07-21 19:55] LABS: BASO % 0.3 % (0.0-1.0); EOS # 0.1 10^3/uL (0.0-0.5); EOS % 1.3 % (0.0-3.0); HEMATOCRIT 46.4 % (42.0-52.0); HEMOGLOBIN 14.7 g/dl (13.5-17.5); LYMPH # 2.6 10^3/uL (1.5-5.0); LYMPH % 25.6 % (24.0-44.0); MEAN CORPUSCULAR HEMOGLOBIN 25.6 pg (27.0-33.0); MEAN CORPUSCULAR HGB CONC 31.7 g/dl (32.0-36.5); MEAN CORPUSCULAR VOLUME 80.8 fl (80.0-96.0); MONO # 0.9 10^3/uL (0.0-0.8); MONO % 9.4 % (2.0-8.0); NEUTROPHILS # 6.3 10^3/uL (1.5-8.5); NEUTROPHILS % 63.1 % (36.0-66.0); PLATELET COUNT, AUTOMATED 290 10^3/uL (150-450); RED BLOOD COUNT 5.74 10^6/uL (4.30-6.10)
[2024-07-21] MEDS: GABAPENTIN 300 MG CAP PO ONE (19:56)
[2024-07-21 20:25] LABS: CALCIUM LEVEL 8.8 MG/DL (8.3-10.6); CREATININE FOR GFR 2.38 MG/DL (0.70-1.30); GLOMERULAR FILTRATION RATE 28.4 (>42); POTASSIUM SERUM 5.4 MMOL/L (3.5-5.1)
[2024-07-21] MEDS: NS 1,000 ML IV ONE ×2 (20:46→22:50)
[2024-07-21 21:52] LABS: MAGNESIUM LEVEL 2.2 MG/DL (1.8-2.4)
[2024-07-21] MEDS: methocarbamoL 500 MG TAB PO ONE (22:07)
[2024-07-21] MEDS ORDERED: VITA-148 PO (23:01)
[2024-07-21] MEDS ORDERED: CARB25TA9 PO (23:01)
[2024-07-21] MEDS ORDERED: BUPR75TA5 PO (23:01)
[2024-07-21] MEDS ORDERED: LEVO50TA5 PO (23:01)
[2024-07-21] MEDS ORDERED: AMLO1TAB24 PO (23:01)
[2024-07-21] MEDS ORDERED: B-12100010 PO (23:01)
[2024-07-21] MEDS ORDERED: LEVA45AE INH (23:01)
[2024-07-21] MEDS ORDERED: CITA40TA7 PO (23:01)
[2024-07-21] MEDS ORDERED: VITA100T14 PO (23:01)
[2024-07-21] MEDS ORDERED: HOME MED LIST COMPLETE! XX SCH (23:05)
[2024-07-22 01:11] LABS: CALCIUM LEVEL 7.9 MG/DL (8.3-10.6); CREATININE FOR GFR 2.07 MG/DL (0.70-1.30); GLOMERULAR FILTRATION RATE 33.3 (>42); POTASSIUM SERUM 4.4 MMOL/L (3.5-5.1)
[2024-07-22 02:15] LABS: SALICYLATE LEVEL 11.8 MG/DL (<30)
[2024-07-22] MEDS: NS 1,000 ML IV SCH (02:40)
[2024-07-22] MEDS ORDERED: HEPARIN SOD (PORCINE) 5000UNITS/ML 1ML VIAL/SYRINGE SC SCH (02:40)
[2024-07-22] MEDS ORDERED: MOM 30ML SUSPENSION UDC PO PRN (02:40)
[2024-07-22] MEDS ORDERED: LEVALBUTEROL HFA 45MCG/ACT 15GM INHALER INH PRN (02:45)
[2024-07-22 04:43] LABS: VENOUS BASE EXCESS -3.2 (-2.0-2.0); VENOUS HCO3 23.6 MMOL/L (23.0-27.0); VENOUS O2 SATURATION 69.8 % (60.0-80.0); VENOUS PARTIAL PRESSURE CO2 49.2 mmHg (38.0-50.0); VENOUS PARTIAL PRESSURE O2 40.4 mmHg (30.0-50.0); VENOUS PH 7.298 UNITS (7.330-7.430); VENOUS STANDARD HCO3 21.2 MMOL/L; VENOUS TOTAL CO2 25.1 MMOL/L (24.0-28.0)
[2024-07-22 04:52] LABS: HEMATOCRIT 38.3 % (42.0-52.0); MEAN CORPUSCULAR HEMOGLOBIN 25.6 pg (27.0-33.0); MEAN CORPUSCULAR HGB CONC 31.1 g/dl (32.0-36.5); MEAN CORPUSCULAR VOLUME 82.4 fl (80.0-96.0); PLATELET COUNT, AUTOMATED 243 10^3/uL (150-450); RED BLOOD COUNT 4.65 10^6/uL (4.30-6.10); WHITE BLOOD COUNT 8.1 10^3/uL (4.0-10.0)
[2024-07-22 04:54] LABS: HEMOGLOBIN 11.9 g/dl (13.5-17.5)
[2024-07-22 05:03] LABS: INR 1.17; PROTHROMBIN TIME 14.6 SECONDS (12.5-14.5)
[2024-07-22 05:21] LABS: CALCIUM LEVEL 8.4 MG/DL (8.3-10.6); CREATININE FOR GFR 1.91 MG/DL (0.70-1.30); GLOMERULAR FILTRATION RATE 36.6 (>42); SALICYLATE LEVEL 8.6 MG/DL (<30)
[2024-07-22] MEDS: LEVOTHYROXINE 50MCG TABLET (0.05MG) PO SCH (09:02)
[2024-07-22] MEDS: RIVAROXABAN 20MG TAB (XARELTO) PO SCH (09:02)
[2024-07-22] MEDS: amLODIPine 5 MG TAB PO SCH (09:02)
[2024-07-22] MEDS: CitaloPRAM (CeleXA) 20 MG TAB PO SCH (09:02)
[2024-07-22] MEDS: DOCUSATE SODIUM 100MG CAPSULE PO SCH (09:02)
[2024-07-22] MEDS: CYANOCOBALAMIN 500 MCG TAB PO SCH (09:02)
[2024-07-22] MEDS: buPROPion 75 MG TAB PO SCH (11:24)
[2024-07-22] MEDS: SINEMET 25-100 MG TAB PO SCH (11:24)
[2024-07-22] MEDS: MORPHINE 2 MG/ML 1ML VIAL IV PRN (11:29)
[2024-07-22] MEDS: hydrALAZINE 20MG/ML 1ML VIAL IV PRN (12:39)
[2024-07-22] MEDS: **hydrALAZINE HCL** 25 MG TAB PO SCH (13:10)
[2024-07-22] MEDS ORDERED: hydrALAZINE 20MG/ML 1ML VIAL IV STA (13:48)
[2024-07-22 16:45] VITALS: BP 160/72; TEMP 97.3; O2SAT 96
[2024-07-22 17:12] LABS: CREATININE,RANDOM URINE 83.8 MG/DL
[2024-07-22 19:46] VITALS: BP 180/82; TEMP 97.3; O2SAT 95
[2024-07-22] MEDS: oxyBUTYnin 5 MG TAB PO SCH (20:10)
[2024-07-23] VITALS (9 sets, daily range): BP systolic 136–191; BP diastolic 62–83; TEMP 97.4–97.9; O2SAT 94–97
[2024-07-23] MEDS: hydrALAZINE 20MG/ML 1ML VIAL IV PRN (03:52)
[2024-07-23] MEDS: ACETAMINOPHEN TAB 650MG DOSE (2X325MG) PO PRN (08:19)
[2024-07-23] MEDS: **hydrALAZINE** 50 MG TAB PO SCH (08:20)
[2024-07-23] MEDS: LIDOCAINE 5% (LIDODERM) PATCH TD SCH (08:20)
[2024-07-23 09:40] LABS: CALCIUM LEVEL 8.6 MG/DL (8.3-10.6); CREATININE FOR GFR 1.54 MG/DL (0.70-1.30); GLOMERULAR FILTRATION RATE 46.9 (>42); MAGNESIUM LEVEL 1.9 MG/DL (1.8-2.4); POTASSIUM SERUM 4.4 MMOL/L (3.5-5.1)
[2024-07-23] MEDS: PERCOCET 5MG/325MG TAB PO PRN (21:24)
[2024-07-24] VITALS (8 sets, daily range): BP systolic 115–166; BP diastolic 54–72; TEMP 97.8–98.8; O2SAT 95–97
[2024-07-24 07:43] LABS: BASO % 0.4 % (0.0-1.0); EOS # 0.1 10^3/uL (0.0-0.5); EOS % 1.7 % (0.0-3.0); HEMATOCRIT 36.8 % (42.0-52.0); HEMOGLOBIN 11.7 g/dl (13.5-17.5); LYMPH # 2.1 10^3/uL (1.5-5.0); LYMPH % 27.4 % (24.0-44.0); MEAN CORPUSCULAR HEMOGLOBIN 25.9 pg (27.0-33.0); MEAN CORPUSCULAR HGB CONC 31.8 g/dl (32.0-36.5); MEAN CORPUSCULAR VOLUME 81.4 fl (80.0-96.0); MONO # 0.8 10^3/uL (0.0-0.8); MONO % 10.9 % (2.0-8.0); NEUTROPHILS # 4.6 10^3/uL (1.5-8.5); NEUTROPHILS % 59.5 % (36.0-66.0); PLATELET COUNT, AUTOMATED 255 10^3/uL (150-450); RED BLOOD COUNT 4.52 10^6/uL (4.30-6.10); WHITE BLOOD COUNT 7.7 10^3/uL (4.0-10.0)
[2024-07-24 07:56] LABS: CALCIUM LEVEL 8.2 MG/DL (8.3-10.6); CREATININE FOR GFR 1.48 MG/DL (0.70-1.30); GLOMERULAR FILTRATION RATE 49.1 (>42)
[2024-07-24] MEDS ORDERED: AMLO1TAB24 PO (13:20)
[2024-07-24] MEDS ORDERED: LIDO5TD TD (13:20)
[2024-07-24] MEDS ORDERED: HYDR50TA46 PO (13:20)
[2024-07-24] MEDS ORDERED: XARE20TA PO (13:20)
[2024-07-25 03:50] VITALS: BP 158/76; TEMP 98.4; O2SAT 96
[2024-07-25 05:18] LABS: CREATININE FOR GFR 1.46 MG/DL (0.70-1.30); GLOMERULAR FILTRATION RATE 49.8 (>42); MAGNESIUM LEVEL 1.9 MG/DL (1.8-2.4); POTASSIUM SERUM 3.9 MMOL/L (3.5-5.1)
[2024-07-25] MEDS ORDERED: AMLO1TAB25 PO (07:36)
[2024-07-25] MEDS ORDERED: HYDR50TA46 PO (07:36)
[2024-07-25 10:22] VITALS: BP 179/79; O2SAT 98
[2024-07-25 11:32] VITALS: BP 138/62
== END 2024-07-25 12:32 | disposition home or self-care (01) | DRG 684 ==
LOC: EDBD 16:23 → M ED 16:23 → M ED INP 07-22 02:38 → M PCU 07-22 16:05
PROVIDERS: ADMIT Family Medicine; ATTEND General Practice
PROC: B246ZZZ Ultrasonography of Right and Left Heart (ICD-10-PCS; principal; 2024-07-23)
DX: N17.0 Acute kidney failure with tubular necrosis (principal); I48.91 Unspecified atrial fibrillation; I12.9 Hypertensive chronic kidney disease with stage 1 through stage 4 chronic kidney disease, or unspecified chronic kidney disease; E78.5 Hyperlipidemia, unspecified; J44.9 Chronic obstructive pulmonary disease, unspecified; G47.33 Obstructive sleep apnea (adult) (pediatric); N18.9 Chronic kidney disease, unspecified; E86.0 Dehydration; M72.2 Plantar fascial fibromatosis; E03.9 Hypothyroidism, unspecified; F32.A Depression, unspecified; I16.0 Hypertensive urgency; E66.9 Obesity, unspecified; T45.516A Underdosing of anticoagulants, initial encounter; Z68.31 Body mass index [BMI] 31.0-31.9, adult; Z79.890 Hormone replacement therapy; Z79.899 Other long term (current) drug therapy; Z88.0 Allergy status to penicillin; Z79.01 Long term (current) use of anticoagulants; Z91.148 Patient's other noncompliance with medication regimen for other reason

== ENCOUNTER → 2024-08-24 | Outpatient (REF) | payer MEDICARE ==
[~2024-08-24] MED LIST changes: +AMLO1TAB24 PO; +B-12100010 PO; +BUPR75TA5 PO; +CARB25TA9 PO; +CITA40TA7 PO; +HYDR50TA46 PO; +LEVA45AE INH; +LEVO50TA5 PO; +LIDO5TD TD; +VITA-148 PO; +VITA100T14 PO
[2024-08-24 19:02] LABS: ALBUMIN 3.7 G/DL (3.2-5.2); ALKALINE PHOSPHATASE 114 U/L (46-116); ALT/SGPT 11 U/L (7.0-40); AST/SGOT 17 U/L (<34); BILIRUBIN,TOTAL 1.1 MG/DL (0.3-1.2); BLOOD UREA NITROGEN 15 MG/DL (9-23); CALCIUM LEVEL 9.3 MG/DL (8.3-10.6); CARBON DIOXIDE LEVEL 24 MMOL/L (20-31); CHLORIDE LEVEL 106 MMOL/L (98-107); CREATININE FOR GFR 1.22 MG/DL (0.70-1.30); GLOMERULAR FILTRATION RATE > 60.0 (>42); GLUCOSE, FASTING 94 MG/DL (74-106); SODIUM LEVEL 139 MMOL/L (136-145); TOTAL PROTEIN 6.7 G/DL (5.7-8.2)
== END ==
LOC: M SFHCADAM 13:23
PROVIDERS: ATTEND Family Medicine
DX: Z87.448 Personal history of other diseases of urinary system (principal)

== ENCOUNTER → 2024-08-30 | Outpatient (CLI) | payer MEDICARE | LOC: M ADAMS 14:37 | PROVIDERS: ATTEND Family Medicine | DX: M16.11 Unilateral primary osteoarthritis, right hip (principal); M25.551 Pain in right hip ==

== ENCOUNTER → 2024-09-18 | Outpatient (CLI) | payer MEDICARE ==
[2024-09-18 19:44] LABS: BASO % 0.5 % (0.0-1.0); EOS # 0.1 10^3/uL (0.0-0.5); EOS % 1.6 % (0.0-3.0); HEMATOCRIT 42.5 % (42.0-52.0); HEMOGLOBIN 13.7 g/dl (13.5-17.5); LYMPH # 2.2 10^3/uL (1.5-5.0); LYMPH % 27.1 % (24.0-44.0); MEAN CORPUSCULAR HEMOGLOBIN 26.9 pg (27.0-33.0); MEAN CORPUSCULAR HGB CONC 32.2 g/dl (32.0-36.5); MEAN CORPUSCULAR VOLUME 83.3 fl (80.0-96.0); MONO # 0.7 10^3/uL (0.0-0.8); MONO % 8.8 % (2.0-8.0); NEUTROPHILS # 5.1 10^3/uL (1.5-8.5); NEUTROPHILS % 61.8 % (36.0-66.0); PLATELET COUNT, AUTOMATED 319 10^3/uL (150-450); WHITE BLOOD COUNT 8.2 10^3/uL (4.0-10.0)
[2024-09-18 20:15] LABS: ALBUMIN 3.5 G/DL (3.2-5.2); BILIRUBIN,TOTAL 1.1 MG/DL (0.3-1.2); CALCIUM LEVEL 8.7 MG/DL (8.3-10.6); CREATININE FOR GFR 1.32 MG/DL (0.70-1.30); TOTAL PROTEIN 6.4 G/DL (5.7-8.2)
[2024-09-18 20:19] LABS: FOLATE 13.49 NG/ML (>5.4)
== END ==
LOC: M LABDRWAD 14:38
PROVIDERS: ATTEND Psychiatry & Neurology Neurology
DX: G20.C Parkinsonism, unspecified (principal); E53.8 Deficiency of other specified B group vitamins

== ENCOUNTER 2024-11-10 10:10 | Observation (INO) | payer MEDICARE ==
[~2024-11-10] VITALS: Ht 185.4 cm; Wt 102.1 kg
[2024-11-10] MEDS ORDERED: ISOVUE-370 76% 100ML VIAL As Ordered ONE (10:36)
[2024-11-10 10:56] LABS: BASO % 0.6 % (0.0-1.0); EOS # 0.1 10^3/uL (0.0-0.5); EOS % 0.8 % (0.0-3.0); HEMATOCRIT 41.7 % (42.0-52.0); HEMOGLOBIN 13.5 g/dl (13.5-17.5); LYMPH # 1.6 10^3/uL (1.5-5.0); LYMPH % 24.8 % (24.0-44.0); MEAN CORPUSCULAR HEMOGLOBIN 26.8 pg (27.0-33.0); MEAN CORPUSCULAR HGB CONC 32.4 g/dl (32.0-36.5); MEAN CORPUSCULAR VOLUME 82.9 fl (80.0-96.0); MONO # 0.5 10^3/uL (0.0-0.8); MONO % 7.8 % (2.0-8.0); NEUTROPHILS # 4.2 10^3/uL (1.5-8.5); NEUTROPHILS % 65.8 % (36.0-66.0); PLATELET COUNT, AUTOMATED 276 10^3/uL (150-450); RED BLOOD COUNT 5.03 10^6/uL (4.30-6.10); WHITE BLOOD COUNT 6.4 10^3/uL (4.0-10.0)
[2024-11-10 11:08] LABS: INR 1.38; PARTIAL THROMBOPLASTIN TIME 36.2 SECONDS (24.8-34.2); PROTHROMBIN TIME 17.2 SECONDS (12.5-14.5)
[2024-11-10] MEDS ORDERED: VENL75CA47 PO (11:14)
[2024-11-10 11:21] LABS: ETHYL ALCOHOL (ETHANOL) < 0.003 % (0.000-0.010)
[2024-11-10 11:23] LABS: ALBUMIN 3.5 G/DL (3.2-5.2); ALKALINE PHOSPHATASE 87 U/L (40-129); ALT/SGPT < 9 U/L (7.0-40); AST/SGOT 18 U/L (<34); BILIRUBIN,DIRECT 0.4 MG/DL (<0.4); BILIRUBIN,TOTAL 1.6 MG/DL (0.3-1.2); BLOOD UREA NITROGEN 13 MG/DL (9-23); CALCIUM LEVEL 8.9 MG/DL (8.3-10.6); CARBON DIOXIDE LEVEL 28 MMOL/L (20-31); CHLORIDE LEVEL 104 MMOL/L (98-107); CK-MB VALUE MASS < 1.0 NG/ML (<3.6); CPK CREATINE PHOSPHOKINASE 80 U/L (46-171); CREATININE FOR GFR 1.27 MG/DL (0.70-1.30); GLOMERULAR FILTRATION RATE 58.4 (>42); GLUCOSE, FASTING 118 MG/DL (74-106); MB/CK RELATIVE INDEX 1.25 (< OR =4); POTASSIUM SERUM 3.5 MMOL/L (3.5-5.1); SALICYLATE LEVEL < 3.0 MG/DL (<30); SODIUM LEVEL 142 MMOL/L (136-145); TOTAL PROTEIN 6.9 G/DL (5.7-8.2)
[2024-11-10 11:25] LABS: THYROID STIMULATING HORMONE 1.136 uIU/ML (0.55-4.78)
[2024-11-10 11:44] VITALS: BP 179/73; O2SAT 96
[2024-11-10] MEDS: NS 500 ML IV ONE (11:49)
[2024-11-10] MEDS ORDERED: AMIODARONE 150MG/3ML VIAL IVP STA (12:12)
[2024-11-10] MEDS: AMIODARONE HCL 150 MG in IV 1 EA IV ONE (12:20)
[2024-11-10 12:26] LABS: MAGNESIUM LEVEL 1.8 MG/DL (1.8-2.4)
[2024-11-10 12:50] LABS: CK-MB VALUE MASS < 1.0 NG/ML (<3.6)
[2024-11-10 12:51] LABS: CPK CREATINE PHOSPHOKINASE 74 U/L (46-171); MB/CK RELATIVE INDEX 1.35 (< OR =4)
[2024-11-10 13:13] VITALS: BP 190/80; O2SAT 95
[2024-11-10] MEDS ORDERED: HYDR50TA46 PO (13:47)
[2024-11-10 15:58] VITALS: BP 174/81; O2SAT 95
[2024-11-10] MEDS ORDERED: MAALOX 30 ML SUSP *UDC PO PRN (16:05)
[2024-11-10] MEDS ORDERED: LEVALBUTEROL HFA 45MCG/ACT 15GM INHALER INH PRN (16:05)
[2024-11-10] MEDS ORDERED: MOM 30ML SUSPENSION UDC PO PRN (16:05)
[2024-11-10 17:29] VITALS: BP 198/78; TEMP 98.6; O2SAT 96
[2024-11-10] MEDS ORDERED: RIVAROXABAN 20MG TAB (XARELTO) PO SCH (18:00)
[2024-11-10 20:00] VITALS: BP 166/68; TEMP 98.8; O2SAT 96
[2024-11-10 23:20] VITALS: BP 218/78; TEMP 98.9; O2SAT 95
[2024-11-11] MEDS: **hydrALAZINE** 50 MG TAB PO SCH (00:13)
[2024-11-11 01:15] VITALS: BP 168/78
[2024-11-11] MEDS: ACETAMINOPHEN 325 MG TAB PO PRN (01:56)
[2024-11-11] MEDS: LIDOCAINE 5% (LIDODERM) PATCH TD ONE (03:39)
[2024-11-11] MEDS: IBUPROFEN 400MG TAB PO ONE (03:39)
[2024-11-11 04:00] VITALS: BP 170/68; TEMP 98.3; O2SAT 97
[2024-11-11] MEDS: LEVOTHYROXINE 50MCG TABLET (0.05MG) PO SCH (05:39)
[2024-11-11 06:54] LABS: CALCIUM LEVEL 8.3 MG/DL (8.3-10.6); CREATININE FOR GFR 1.49 MG/DL (0.70-1.30); GLOMERULAR FILTRATION RATE 48.6 (>42); MAGNESIUM LEVEL 1.7 MG/DL (1.8-2.4); POTASSIUM SERUM 3.4 MMOL/L (3.5-5.1)
[2024-11-11] MEDS: MAG SULF 1GM/100ML (MAG RUN) 1 GM in IV 1 EA IV SCH (07:26)
[2024-11-11] MEDS: POTASSIUM CHLORIDE 10MEQ SR TABLET PO ONE (07:27)
[2024-11-11 08:00] VITALS: BP 152/45; TEMP 98.2; O2SAT 96
[2024-11-11 08:35] LABS: BASO % 0.5 % (0.0-1.0); EOS # 0.1 10^3/uL (0.0-0.5); EOS % 1.5 % (0.0-3.0); HEMATOCRIT 34.5 % (42.0-52.0); LYMPH # 2.7 10^3/uL (1.5-5.0); LYMPH % 35.9 % (24.0-44.0); MEAN CORPUSCULAR HGB CONC 32.8 g/dl (32.0-36.5); MEAN CORPUSCULAR VOLUME 82.3 fl (80.0-96.0); MONO # 0.9 10^3/uL (0.0-0.8); MONO % 11.2 % (2.0-8.0); NEUTROPHILS # 3.8 10^3/uL (1.5-8.5); NEUTROPHILS % 50.8 % (36.0-66.0); PLATELET COUNT, AUTOMATED 252 10^3/uL (150-450); RED BLOOD COUNT 4.19 10^6/uL (4.30-6.10); WHITE BLOOD COUNT 7.6 10^3/uL (4.0-10.0)
[2024-11-11 08:36] LABS: HEMOGLOBIN 11.3 g/dl (13.5-17.5)
[2024-11-11] MEDS: oxyBUTYnin 5 MG TAB PO SCH (08:43)
[2024-11-11] MEDS ORDERED: oxyBUTYnin 5 MG TAB PO SCH (09:00)
[2024-11-11] MEDS: buPROPion 75 MG TAB PO SCH (09:00)
[2024-11-11] MEDS ORDERED: NS (Normal Saline) 0.9% 1,000 ML IV ONE (09:35)
[2024-11-11 10:22] VITALS: BP 131/71
[2024-11-11] MEDS: SINEMET 25-100 MG TAB PO SCH (10:22)
[2024-11-11] MEDS: CitaloPRAM (CeleXA) 20 MG TAB PO SCH (10:22)
[2024-11-11] MEDS: CYANOCOBALAMIN 500 MCG TAB PO SCH (10:22)
[2024-11-11] MEDS ORDERED: HYDR50TA47 PO (10:31)
[2024-11-11] MEDS: SYMBICORT 160/4.5MCG INHALER 6GM INH SCH (11:36)
[2024-11-11 11:43] LABS: MAGNESIUM LEVEL 2.2 MG/DL (1.8-2.4); POTASSIUM SERUM 3.5 MMOL/L (3.5-5.1)
[2024-11-11 12:00] VITALS: BP 148/56; TEMP 98.3; O2SAT 94
[2024-11-11] MEDS ORDERED: **hydrALAZINE HCL** 25 MG TAB PO SCH (16:00)
[2024-11-11] MEDS ORDERED: RIVAROXABAN 20MG TAB (XARELTO) PO SCH (18:00)
== END 2024-11-11 13:28 | disposition home or self-care (01) ==
LOC: EDBD 10:10 → M ED 10:10 → INTOOBSV 14:34 → M ED INP 14:34 → M PCU 17:20
PROVIDERS: ADMIT Student in an Organized Health Care Education/Training Program; ATTEND Student in an Organized Health Care Education/Training Program
DX: G93.40 Encephalopathy, unspecified (principal); R74.02 Elevation of levels of lactic acid dehydrogenase [LDH]; I48.91 Unspecified atrial fibrillation; E03.9 Hypothyroidism, unspecified; I47.29 Other ventricular tachycardia; J44.9 Chronic obstructive pulmonary disease, unspecified; F32.A Depression, unspecified; G47.33 Obstructive sleep apnea (adult) (pediatric); E66.813 Obesity, class 3; G20.A1 Parkinson's disease without dyskinesia, without mention of fluctuations; E78.5 Hyperlipidemia, unspecified; E83.42 Hypomagnesemia; E87.6 Hypokalemia; R41.0 Disorientation, unspecified; R53.1 Weakness; I67.82 Cerebral ischemia; Z88.0 Allergy status to penicillin; Z91.018 Allergy to other foods; Z79.899 Other long term (current) drug therapy; Z79.890 Hormone replacement therapy; Z79.01 Long term (current) use of anticoagulants
CPT/HCPCS: 36415; 70450; 70496; 70498; 70551; 71045; 80047; 80048; 80076; 80143; 82077; 82140; 82550; 82553; 83605; 83735; 84132; 84443; 84484; 85025; 85610; 85730; 93005; 93041; 93308; 94760; 96365; 96366; 97161; 97530; 99285; G0378; J0283; J3475; Q9967

== ENCOUNTER → 2024-11-17 | Outpatient (CLI) | payer MEDICARE ==
[~2024-11-17] MED LIST changes: +HYDR50TA47 PO; +VENL75CA47 PO
[2024-11-17 14:52] LABS: CREATININE FOR GFR 1.43 MG/DL (0.70-1.30); GLOMERULAR FILTRATION RATE 50.9 (>42); POTASSIUM SERUM 4.4 MMOL/L (3.5-5.1)
== END ==
LOC: M LAB 12:57
PROVIDERS: ATTEND Student in an Organized Health Care Education/Training Program
DX: E83.42 Hypomagnesemia (principal)

== ENCOUNTER → 2025-03-13 | Outpatient (REF) | payer MEDICARE | LOC: M LABDRAWC 13:26 | PROVIDERS: ATTEND Psychiatry & Neurology Neurology | DX: G20.C Parkinsonism, unspecified (principal); E53.8 Deficiency of other specified B group vitamins ==

== ENCOUNTER → 2025-03-21 | Outpatient (REF) | payer MEDICARE ==
[2025-03-21 14:52] LABS: BASO % 0.5 % (0.0-1.0); EOS # 0.1 10^3/uL (0.0-0.5); EOS % 1.7 % (0.0-3.0); HEMATOCRIT 40.6 % (42.0-52.0); HEMOGLOBIN 12.9 g/dl (13.5-17.5); LYMPH # 2.7 10^3/uL (1.5-5.0); LYMPH % 34.1 % (24.0-44.0); MEAN CORPUSCULAR HEMOGLOBIN 27.4 pg (27.0-33.0); MEAN CORPUSCULAR HGB CONC 31.8 g/dl (32.0-36.5); MEAN CORPUSCULAR VOLUME 86.2 fl (80.0-96.0); MONO # 0.9 10^3/uL (0.0-0.8); MONO % 11.2 % (2.0-8.0); NEUTROPHILS # 4.2 10^3/uL (1.5-8.5); NEUTROPHILS % 52.3 % (36.0-66.0); PLATELET COUNT, AUTOMATED 345 10^3/uL (150-450); RED BLOOD COUNT 4.71 10^6/uL (4.30-6.10)
[2025-03-21 15:01] LABS: ALBUMIN 3.7 G/DL (3.2-5.2); BILIRUBIN,TOTAL 0.9 MG/DL (0.3-1.2); CALCIUM LEVEL 8.8 MG/DL (8.3-10.6); CHOLESTEROL RISK RATIO 4.14 (<5); CREATININE FOR GFR 1.24 MG/DL (0.70-1.30); GLOMERULAR FILTRATION RATE 59.5 (>42); LDL CHOLESTEROL 88.8 MG/DL (<100); POTASSIUM SERUM 4.7 MMOL/L (3.5-5.1); TOTAL PROTEIN 6.6 G/DL (5.7-8.2)
[2025-03-21 15:04] LABS: FREE T4 0.96 NG/DL (0.89-1.76); THYROID STIMULATING HORMONE 1.888 uIU/ML (0.55-4.78)
== END ==
LOC: M SFHCADAM 09:39
PROVIDERS: ATTEND Family Medicine
DX: Z00.00 Encounter for general adult medical examination without abnormal findings (principal); Z79.899 Other long term (current) drug therapy

== ENCOUNTER → 2025-07-17 | Outpatient (CLI) | payer MEDICARE ==
[~2025-07-17] MED LIST changes: -AMIO200T49 PO; +AMIO200T54 PO; -VITA100T14 PO; +VITA100T69 PO
[2025-07-17 13:10] LABS: PLATELET COUNT, AUTOMATED 278 10^3/uL (150-450)
[2025-07-17 13:50] LABS: ALT/SGPT < 9 U/L (7.0-40); AST/SGOT 22 U/L (<34); CALCIUM LEVEL 8.7 MG/DL (8.3-10.6); CARBON DIOXIDE LEVEL 26 MMOL/L (20-31); CHLORIDE LEVEL 101 MMOL/L (98-107); CREATININE FOR GFR 1.39 MG/DL (0.70-1.30); GLOMERULAR FILTRATION RATE 51.9 (>42); POTASSIUM SERUM 4.3 MMOL/L (3.5-5.1); SODIUM LEVEL 139 MMOL/L (136-145)
== END ==
LOC: M LABDRWAD 11:14
PROVIDERS: ATTEND Nurse Practitioner Family
DX: I48.19 Other persistent atrial fibrillation (principal); Z79.899 Other long term (current) drug therapy

== ENCOUNTER → 2025-09-13 | Outpatient (REF) | payer MEDICARE ==
[~2025-09-13] MED LIST changes: +BUPR-363 PO; -BUPR75TA5 PO
[2025-09-13 17:51] LABS: CALCIUM LEVEL 8.5 MG/DL (8.3-10.6); CARBON DIOXIDE LEVEL 27.0 MMOL/L (20-31); CHLORIDE LEVEL 106.0 MMOL/L (98-107); CREATININE FOR GFR 1.47 MG/DL (0.70-1.30); GLOMERULAR FILTRATION RATE 48.5 (>42); POTASSIUM SERUM 4.0 MMOL/L (3.5-5.1); SODIUM LEVEL 144.0 MMOL/L (136-145)
[2025-09-13 17:52] LABS: FREE T4 0.99 NG/DL (0.89-1.76)
== END ==
LOC: M SFHCADAM 11:22
PROVIDERS: ATTEND Family Medicine
DX: F32.A Depression, unspecified (principal); E03.9 Hypothyroidism, unspecified; I10 Essential (primary) hypertension